=== PATIENT | female | born 1930 | race African-American/Black ===

== ENCOUNTER → 2017-01-05 | Outpatient (CLI) | payer MEDICARE, BC ==
[~2017-01-05] MED LIST: CARI350T27 PO; COLC0.6T66 PO; FURO20TA4 PO; LOSA50TA20 PO; MED4 GT; TRAM50TA PO
== END | disposition home or self-care (01) ==
LOC: MAMMO 09:14
PROVIDERS: ATTEND Internal Medicine
DX: Z12.31 Encounter for screening mammogram for malignant neoplasm of breast (principal)
CPT/HCPCS: G0202

== ENCOUNTER 2019-03-10 12:25 | Inpatient (IN) | payer MEDICARE, BC ==
[~2019-03-10] VITALS: Ht 163.8 cm; Wt 98.9 kg
[~2019-03-10 12:25] MED LIST changes: -LOSA50TA20 PO; +LOSA50TA41 PO
[2019-03-10] MEDS ORDERED: MORPHINE SULFATE 4 MG/ML CPJ (NOT FOR IM USE) IV STA (15:10)
[2019-03-10] MEDS ORDERED: ONDANSETRON HCL 4MG/2ML INJ IV STA (15:10)
[2019-03-10] MEDS ORDERED: HYDRALAZINE 20MG/ML VIAL IV ONE (15:15)
[2019-03-10] MEDS ORDERED: NITROGLYCERIN OINT 1GM/INCH UDPKT TD ONE (15:15)
[2019-03-10] MEDS ORDERED: FUROSEMIDE 40MG/4ML VIAL IV ONE (15:15)
[2019-03-10 16:15] LABS: CHLORIDE 102 mEq/L (98-107)
[2019-03-10 16:26] LABS: BASOPHILS % 0.7 % (0.0-2.0); EOSINOPHILS % 3.4 % (0.0-5.0); HEMATOCRIT. 41.4 % (36.0-48.0); HEMOGLOBIN. 13.7 g/dL (12.0-16.0); LYMPHOCYTES % 19.9 % (20.0-50.0); MEAN CORPUSCULAR HEMOGLOBIN 27.5 pg (28.0-32.0); MEAN CORPUSCULAR VOLUME 83.3 fL (81.0-99.0); MEAN PLATELET VOLUME 7.5 fl (7.4-10.4); PLATELET 244 x1000/uL (130-400); RED BLOOD CELL COUNT 4.97 mill/uL (4.2-5.4); RED CELL DISTRIBUTION WIDTH 15.4 % (11.6-14.6)
[2019-03-10 16:48] LABS: PARTIAL THROMBOPLASTIN TIME 25.2 sec (23.4-31.0); PROTHROMBIN TIME 10.4 sec (9.6-11.0)
[2019-03-10] MEDS ORDERED: ASPIRIN 81MG TABLET PO ONE (17:00)
[2019-03-10 17:55] LABS: CLARITY URINE CLOUDY (CLEAR); COLOR URINE YELLOW (YELLOW); KETONES URINE NEGATIVE (NEGATIVE); LEUKOCYTE ESTERASE URINE NEGATIVE (NEGATIVE); NITRITE URINE NEGATIVE (NEGATIVE); OCCULT BLOOD URINE NEGATIVE (NEGATIVE); PROTEIN URINE TRACE (NEGATIVE); SPECIFIC GRAVITY URINE 1.009 (1.005-1.030); UROBILINOGEN URINE 0.2 E.U./dL (0.2-1.0)
[2019-03-10] MEDS ORDERED: IOHEXOL-350 100 ML BOTTLE ONE (18:17)
[2019-03-10 22:00] VITALS: BP 153/104
[2019-03-10] MEDS ORDERED: CLONIDINE 0.1MG TABLET PO PRN (23:15)
[2019-03-10] MEDS ORDERED: ACETAMINOPHEN 325MG TABLET PO PRN (23:15)
[2019-03-10] MEDS ORDERED: CALCIUM CARBONATE 500 MG PO SCH (23:30)
[2019-03-10] MEDS ORDERED: ASPI-986 PO (23:31)
[2019-03-10] MEDS ORDERED: MULT-1146 PO (23:31)
[2019-03-10] MEDS ORDERED: CALC-586 PO (23:31)
[2019-03-10] MEDS ORDERED: PRED5DRO22 RIGHTEYE (23:49)
[2019-03-10] MEDS ORDERED: CYCL2DRO RIGHTEYE (23:49)
[2019-03-10] MEDS ORDERED: MOXI3DRO12 RIGHTEYE (23:49)
[2019-03-11] MEDS ORDERED: CALCIUM CARBONATE 1250MG TABLET (500MG ELEMENTAL CALCIUM) PO PRN
[2019-03-11] MEDS: PREDNISOLONE ACETATE 1% OPHTH DROPS 5ML RIGHTEYE SCH ×12 (01:01→23:00)
[2019-03-11 08:07] LABS: CREATINE KINASE 430 IU/L (26-192)
[2019-03-11 08:08] LABS: CREATINE KINASE MB FRACTION 4.9 ng/mL (0.5-3.6)
[2019-03-11 08:27] VITALS: BP 153/97
[2019-03-11] MEDS ORDERED: MAGNESIUM HYDROXIDE 400MG/5ML 30ML UDC PO NR (09:00)
[2019-03-11] MEDS: FUROSEMIDE 40MG/4ML VIAL IVP SCH ×2 (09:00→22:41)
[2019-03-11] MEDS ORDERED: MEDICATION NOT ON FORMULARY EA (Multivitamin (Multi Vitamin Daily) 1 EACH) PO SCH (09:00)
[2019-03-11] MEDS: COLCHICINE 0.6MG TABLET PO SCH ×3 (09:00→17:00)
[2019-03-11] MEDS ORDERED: ASPIRIN 81MG TABLET PO SCH (09:00)
[2019-03-11] MEDS ORDERED: MAGNESIUM HYDROXIDE 400MG/5ML 30ML UDC PO PRN (09:00)
[2019-03-11] MEDS ORDERED: ERGOCALCIFEROL 50000UNITS CAPSULE PO SCH (09:00)
[2019-03-11] MEDS ORDERED: ENOXAPARIN 40MG/0.4ML SYR SUBCUT SCH (09:00)
[2019-03-11] MEDS ORDERED: MAGNESIUM CITRATE 300ML SOLUTION PO PRN (09:00)
[2019-03-11] MEDS ORDERED: MEDICATION NOT ON FORMULARY EA (Moxifloxacin HCl (Moxifloxacin) 1 DROP) RIGHTEYE SCH (09:00)
[2019-03-11] MEDS ORDERED: ENOXAPARIN 30MG/0.3ML SYR SUBCUT SCH (09:00)
[2019-03-11] MEDS: POTASSIUM CHLORIDE 20MEQ TABLET SR PO SCH (09:00)
[2019-03-11] MEDS ORDERED: MULTIVITAMINS,THER W-MINERALS TABLET PO SCH (09:00)
[2019-03-11] MEDS: MOXIFLOXACIN 0.5% OP SCH ×3 (09:15→17:11)
[2019-03-11] MEDS: CYCLOPENTOLATE HCL 1% OPHTH DROPS 2ML RIGHTEYE SCH ×3 (09:16→17:12)
[2019-03-11] MEDS: DOCUSATE SODIUM SUGAR FREE 100MG/10ML UDC NG SCH (09:17)
[2019-03-11] MEDS: LOSARTAN POTASSIUM 50 MG TABLET PO SCH (09:18)
[2019-03-11] MEDS: ASPIRIN 81MG TABLET PO SCH (09:18)
[2019-03-11] MEDS: MULTIVITAMINS,THER W-MINERALS TABLET PO SCH (09:19)
[2019-03-11] MEDS: CARISOPRODOL 350 MG TABLET PO SCH (09:19)
[2019-03-11] MEDS: TRAMADOL 50MG TABLET PO PRN (09:21)
[2019-03-11 10:22] LABS: BASOPHILS % 0.8 % (0.0-2.0); EOSINOPHILS % 4.9 % (0.0-5.0); HEMATOCRIT. 36.6 % (36.0-48.0); LYMPHOCYTES % 22.7 % (20.0-50.0); MEAN CORPUSCULAR HEMOGLOBIN 27.6 pg (28.0-32.0); MEAN CORPUSCULAR VOLUME 83.8 fL (81.0-99.0); MEAN PLATELET VOLUME 7.7 fl (7.4-10.4); MONOCYTES % 9.6 % (2.0-8.0); PLATELET 234 x1000/uL (130-400); RED BLOOD CELL COUNT 4.37 mill/uL (4.2-5.4); RED CELL DISTRIBUTION WIDTH 15.5 % (11.6-14.6)
[2019-03-11 10:24] LABS: CHLORIDE 103 mEq/L (98-107)
[2019-03-11] MEDS ORDERED: ENOXAPARIN 80MG/0.8ML SYR SUBCUT NR (11:00)
[2019-03-11] MEDS ORDERED: PNEUMOCOCCAL 23-VAL P-SAC VAC 0.5 ML IM ONE (12:00)
[2019-03-11 12:25] VITALS: BP 129/79
[2019-03-11] MEDS: DILTIAZEM HCL 30MG TABLET PO SCH ×2 (13:31→23:18)
[2019-03-11] MEDS: IPRATROPIUM/ALBUTEROL 0.5-3(2.5)MG/3ML NEB HHN SCH ×2 (14:27→20:33)
[2019-03-11 16:19] VITALS: BP 159/84
[2019-03-11 16:23] LABS: CREATINE KINASE MB FRACTION 3.8 ng/mL (0.5-3.6)
[2019-03-11] MEDS ORDERED: NA PHOS,M-B/NA PHOS,DI-BA ENEMA 118ML PR NR (18:37)
[2019-03-11 20:39] VITALS: BP 139/98
[2019-03-11] MEDS ORDERED: ENOXAPARIN 100MG/ML SYR SUBCUT SCH ×2 (21:00)
[2019-03-11] MEDS ORDERED: LACTULOSE 20G/30ML UDC PO NR (21:00)
[2019-03-12 00:46] VITALS: BP 145/91
[2019-03-12] MEDS: PREDNISOLONE ACETATE 1% OPHTH DROPS 5ML RIGHTEYE SCH ×12 (01:00→23:00)
[2019-03-12] MEDS: IPRATROPIUM/ALBUTEROL 0.5-3(2.5)MG/3ML NEB HHN SCH ×4 (01:01→20:32)
[2019-03-12 01:05] LABS: CREATINE KINASE MB FRACTION 3.8 ng/mL (0.5-3.6)
[2019-03-12 04:00] VITALS: BP 136/60
[2019-03-12] MEDS: DILTIAZEM HCL 30MG TABLET PO SCH (06:42)
[2019-03-12 07:14] LABS: BASOPHILS % 0.8 % (0.0-2.0); EOSINOPHILS % 3.5 % (0.0-5.0); HEMATOCRIT. 38.7 % (36.0-48.0); HEMOGLOBIN. 12.3 g/dL (12.0-16.0); LYMPHOCYTES % 21.3 % (20.0-50.0); MEAN CORPUSCULAR VOLUME 84.6 fL (81.0-99.0); MEAN PLATELET VOLUME 8.3 fl (7.4-10.4); MONOCYTES % 9.7 % (2.0-8.0); NEUTROPHILS % 64.7 % (40.0-76.0); PLATELET 218 x1000/uL (130-400); RED BLOOD CELL COUNT 4.58 mill/uL (4.2-5.4)
[2019-03-12] MEDS: DOCUSATE SODIUM SUGAR FREE 100MG/10ML UDC NG SCH (08:40)
[2019-03-12 08:42] VITALS: BP 142/88
[2019-03-12] MEDS: COLCHICINE 0.6MG TABLET PO SCH ×3 (09:00→16:16)
[2019-03-12] MEDS ORDERED: POTASSIUM CHLORIDE 20MEQ TABLET SR PO NR (09:00)
[2019-03-12] MEDS: MOXIFLOXACIN 0.5% OP SCH ×3 (09:24→16:20)
[2019-03-12] MEDS: FUROSEMIDE 40MG/4ML VIAL IVP SCH ×2 (09:25→21:00)
[2019-03-12] MEDS: CYCLOPENTOLATE HCL 1% OPHTH DROPS 2ML RIGHTEYE SCH ×3 (09:26→16:19)
[2019-03-12] MEDS: AMIODARONE HCL 200 MG TABLET PO SCH ×2 (09:26→22:15)
[2019-03-12] MEDS: ASPIRIN 81MG TABLET PO SCH (09:27)
[2019-03-12] MEDS: POTASSIUM CHLORIDE 20MEQ TABLET SR PO SCH (09:27)
[2019-03-12] MEDS: MULTIVITAMINS,THER W-MINERALS TABLET PO SCH (09:27)
[2019-03-12] MEDS: LOSARTAN POTASSIUM 50 MG TABLET PO SCH (09:27)
[2019-03-12] MEDS: CARISOPRODOL 350 MG TABLET PO SCH (09:27)
[2019-03-12] MEDS: APIXABAN 5 MG TABLET PO SCH ×2 (09:30→16:15)
[2019-03-12 12:27] VITALS: BP 118/69
[2019-03-12] MEDS: DILTIAZEM HCL 60MG TABLET PO SCH ×2 (13:36→22:17)
[2019-03-12 16:17] VITALS: BP 119/84
[2019-03-12 20:00] VITALS: BP 112/68
[2019-03-12] MEDS: TRAMADOL 50MG TABLET PO PRN (20:23)
[2019-03-12] MEDS ORDERED: LATANOPROST 0.005% OPHTH DROPS 2.5ML LEFTEYE SCH (21:00)
[2019-03-13 00:28] VITALS: BP 130/50
[2019-03-13] MEDS: PREDNISOLONE ACETATE 1% OPHTH DROPS 5ML RIGHTEYE SCH ×6 (01:00→10:59)
[2019-03-13] MEDS: IPRATROPIUM/ALBUTEROL 0.5-3(2.5)MG/3ML NEB HHN SCH ×2 (02:22→09:18)
[2019-03-13 04:00] VITALS: BP 120/58
[2019-03-13 06:41] LABS: BASOPHILS % 0.5 % (0.0-2.0); EOSINOPHILS % 4.5 % (0.0-5.0); HEMOGLOBIN. 11.6 g/dL (12.0-16.0); LYMPHOCYTES % 22.9 % (20.0-50.0); MEAN CORPUSCULAR HEMOGLOBIN 27.9 pg (28.0-32.0); MEAN CORPUSCULAR VOLUME 84.1 fL (81.0-99.0); MEAN PLATELET VOLUME 7.6 fl (7.4-10.4); MONOCYTES % 10.8 % (2.0-8.0); NEUTROPHILS % 61.3 % (40.0-76.0); PLATELET 235 x1000/uL (130-400); RED BLOOD CELL COUNT 4.17 mill/uL (4.2-5.4); RED CELL DISTRIBUTION WIDTH 15.8 % (11.6-14.6)
[2019-03-13] MEDS: DILTIAZEM HCL 60MG TABLET PO SCH (06:58)
[2019-03-13 07:14] LABS: PHOSPHORUS 4.1 mg/dL (2.5-4.9)
[2019-03-13 08:00] VITALS: BP 144/78
[2019-03-13] MEDS: COLCHICINE 0.6MG TABLET PO SCH (09:32)
[2019-03-13] MEDS: LOSARTAN POTASSIUM 50 MG TABLET PO SCH (09:33)
[2019-03-13] MEDS: POTASSIUM CHLORIDE 20MEQ TABLET SR PO SCH (09:33)
[2019-03-13] MEDS: AMIODARONE HCL 200 MG TABLET PO SCH (09:33)
[2019-03-13] MEDS: CARISOPRODOL 350 MG TABLET PO SCH (09:33)
[2019-03-13] MEDS: APIXABAN 5 MG TABLET PO SCH (09:33)
[2019-03-13] MEDS: ASPIRIN 81MG TABLET PO SCH (09:33)
[2019-03-13] MEDS: MOXIFLOXACIN 0.5% OP SCH (09:34)
[2019-03-13] MEDS: FUROSEMIDE 40MG/4ML VIAL IVP SCH (09:34)
[2019-03-13] MEDS: CYCLOPENTOLATE HCL 1% OPHTH DROPS 2ML RIGHTEYE SCH (09:36)
[2019-03-13] MEDS: MULTIVITAMINS,THER W-MINERALS TABLET PO SCH (09:39)
[2019-03-13] MEDS: DOCUSATE SODIUM SUGAR FREE 100MG/10ML UDC NG SCH (09:39)
[2019-03-13 12:00] VITALS: BP 144/63
[2019-03-13 13:26] VITALS: BP 144/63
== END 2019-03-13 14:10 | disposition home or self-care (01) | DRG 309 ==
LOC: ER 12:25 → 6WST 18:50 → ENRESERV 21:06
PROVIDERS: ADMIT Internal Medicine; ATTEND Internal Medicine
DX: I48.91 Unspecified atrial fibrillation (principal); I50.30 Unspecified diastolic (congestive) heart failure; I11.0 Hypertensive heart disease with heart failure; K59.00 Constipation, unspecified; E66.01 Morbid (severe) obesity due to excess calories; E78.5 Hyperlipidemia, unspecified; G89.4 Chronic pain syndrome; I25.10 Atherosclerotic heart disease of native coronary artery without angina pectoris; I27.29 Other secondary pulmonary hypertension; M19.90 Unspecified osteoarthritis, unspecified site; I87.2 Venous insufficiency (chronic) (peripheral); E78.00 Pure hypercholesterolemia, unspecified; H40.9 Unspecified glaucoma; Z96.659 Presence of unspecified artificial knee joint; M10.9 Gout, unspecified; I08.3 Combined rheumatic disorders of mitral, aortic and tricuspid valves; Z87.891 Personal history of nicotine dependence; Z86.73 Personal history of transient ischemic attack (TIA), and cerebral infarction without residual deficits; Z90.710 Acquired absence of both cervix and uterus; Z68.36 Body mass index [BMI] 36.0-36.9, adult; Z86.718 Personal history of other venous thrombosis and embolism; Z79.899 Other long term (current) drug therapy; Z79.82 Long term (current) use of aspirin; Z88.8 Allergy status to other drugs, medicaments and biological substances; Z88.2 Allergy status to sulfonamides
CPT/HCPCS: 36415; 71045; 71275; 74176; 80048; 81003; 82550; 82553; 82962; 83735; 83880; 84100; 84484; 85379; 90732; 93005; 93306; 93970; 94640; 96374; 99285; J0360; J1650; J1940; J2270; J2405; J7620; Q9967